=== PATIENT | female | born 1950 | race Caucasian/White ===

== ENCOUNTER → 2021-04-02 11:19 | Outpatient (CLI) | payer MEDICARE, SELFPAY ==
--- NOTE | 2021-04-02 11:21 | DI.MG.S_ITS ---
BILATERAL DIGITAL SCREENING MAMMOGRAM 3D/2D WITH CAD: 04/02/2021 CLINICAL: Routine screening. Family history of breast cancer. Comparison is made to exams dated: 08/29/2015 mammogram and 08/10/2013 mammogram - outside location. The tissue of both breasts is predominantly fatty. Current study was also evaluated with a Computer Aided Detection (CAD) system. No significant masses, calcifications, or other findings are seen in either breast. There has been no significant interval change. IMPRESSION: NEGATIVE There is no mammographic evidence of malignancy. A 1 year screening mammogram is recommended. This exam was interpreted at Station ID: [id number]. NOTE: For mammograms, a report in lay terms will be sent to the patient. Approximately 15% of breast malignancies will not be visualized mammographically. In the management of a palpable breast mass, a negative mammogram must not discourage biopsy of a clinically suspicious lesion. Electronically Signed By: Garcia Lopez M.D., jr/prema:04/02/2021 11:59:56 letter sent: Normal Exam ACR BI-RADS Category 1: Negative 3341F
== END ==
PROVIDERS: Family Provider Specialist; PCP Family Medicine; Referring Provider Family Medicine; Visit Provider Family Medicine
DX: Z12.31 Encounter for screening mammogram for malignant neoplasm of breast (principal); Z80.3 Family history of malignant neoplasm of breast
CPT/HCPCS: 77063; 77067

== ENCOUNTER → 2021-08-16 11:34 | Outpatient (CLI) | payer MEDICARE, SELFPAY ==
--- NOTE | 2021-08-16 11:37 | DI.RAD.S_ITS ---
PROCEDURE: XR KNEE RT 3V INDICATIONS: right knee pain - suspect OA TECHNIQUE: 3 views of the knee were acquired. COMPARISON: [facility], , KNEE 3V RIGHT, 09/23/2016, 10:29. FINDINGS: Bones: No fractures or dislocations. Moderate to advanced joint space loss of the medial compartment with periarticular osteophytosis. The lateral and patellofemoral compartment joint spaces are maintained. Mild to moderate lateral and patellofemoral compartment osteophytosis. Soft tissues: No substantial joint effusion. No suspicious soft tissue calcifications. IMPRESSION: Knee degeneration as detailed above. Dictated by: Mauricio Martines M.D. on 08/16/2021 at 13:28 Approved by: Mauricio Martines M.D. on 08/16/2021 at 13:32
== END ==
PROVIDERS: Family Provider Specialist; PCP Family Medicine; Referring Provider Physician Assistant; Visit Provider Physician Assistant
DX: M25.561 Pain in right knee (principal)
CPT/HCPCS: 73562

== ENCOUNTER → 2021-10-11 11:10 | Outpatient (CLI) | payer MEDICARE, SELFPAY ==
--- NOTE | 2021-10-11 11:12 | DI.US.S_ITS ---
PROCEDURE: US EXTREMELY NONVASC UPPER RT INDICATIONS: MASS RIGHT UPPER THIGH TECHNIQUE: Real-time scanning was performed of the right thigh, with image documentation. COMPARISON: None. FINDINGS: Focused ultrasound examination of medial right upper thigh shows isoechoic nonencapsulated structure in subcutaneous soft tissue measures 4.5 x 4.7 x 2.3 cm in size. No internal vascularity is seen. IMPRESSION: Finding most likely represent unencapsulated lipoma in medial right upper thigh soft tissue. Clinical correlation and follow-up is recommended. Dictated by: Dm Hernandez M.D. on 10/11/2021 at 16:47 Approved by: Dm Hernandez M.D. on 10/11/2021 at 16:47
== END ==
PROVIDERS: Family Provider Specialist; PCP Family Medicine; Referring Provider Physician Assistant; Visit Provider Physician Assistant
DX: R22.41 Localized swelling, mass and lump, right lower limb (principal)
CPT/HCPCS: 76882

== ENCOUNTER → 2022-03-27 10:30 | Outpatient (CLI) | payer MEDICARE, SELFPAY | PROVIDERS: Family Provider Specialist; PCP Family Medicine; Visit Provider Physician Assistant | DX: N95.2 Postmenopausal atrophic vaginitis (principal) | CPT/HCPCS: 87070; 87075; 87077; 87186; 87205 ==

== ENCOUNTER → 2022-05-09 12:46 | Outpatient (CLI) | payer MEDICARE, SELFPAY ==
--- NOTE | 2022-05-09 | DI.MG.S_ITS ---
BILATERAL DIGITAL SCREENING MAMMOGRAM 3D/2D WITH CAD: 05/09/2022 CLINICAL: Routine screening. Family history of breast cancer. Comparison is made to exams dated: 04/02/2021 mammogram - [facility], 08/29/2015 mammogram, and 08/10/2013 mammogram - outside location. Both breasts are heterogeneously dense, which may obscure small masses (category c / 51-75% glandular tissue). Current study was also evaluated with a Computer Aided Detection (CAD) system. No significant masses, calcifications, or other findings are seen in either breast. There has been no significant interval change. IMPRESSION: NEGATIVE There is no mammographic evidence of malignancy. A 1 year screening mammogram is recommended. Based on the Tyrer Cuzick model (a risk assessment model) the patient's lifetime risk is 14.7% and her 10 year risk is 8.8%. According to the ACR, ACS, and NCCN guidelines, an annual breast MRI exam along with mammogram is recommended if the patient's lifetime risk is 20% or greater. This exam was interpreted at Station ID: [id number]. NOTE: For mammograms, a report in lay terms will be sent to the patient. Approximately 15% of breast malignancies will not be visualized mammographically. In the management of a palpable breast mass, a negative mammogram must not discourage biopsy of a clinically suspicious lesion. Electronically Signed By: Garcia Lopez M.D., jr/prema:05/09/2022 13:07:02 letter sent: Normal Exam ACR BI-RADS Category 1: Negative 3341F
== END ==
PROVIDERS: Family Provider Specialist; PCP Family Medicine; Referring Provider Family Medicine; Visit Provider Family Medicine
DX: Z12.31 Encounter for screening mammogram for malignant neoplasm of breast (principal); Z80.3 Family history of malignant neoplasm of breast
CPT/HCPCS: 77063; 77067

== ENCOUNTER → 2022-12-30 10:20 | Outpatient (CLI) | payer MEDICARE, SELFPAY ==
[2022-12-30 11:11] LABS: Hemoglobin A1C% w Est Avg Glu 6.3 % (4.0-6.0)
[2022-12-30 11:45] LABS: Microalbumin Urine Random 11.1 mg/dL (0-1.6)
== END ==
PROVIDERS: Family Provider Specialist; PCP Family Medicine; Referring Provider Physician Assistant; Visit Provider Physician Assistant
DX: E11.9 Type 2 diabetes mellitus without complications (principal); Z12.11 Encounter for screening for malignant neoplasm of colon; E11.65 Type 2 diabetes mellitus with hyperglycemia
CPT/HCPCS: 36415; 82043; 82570; 83036

== ENCOUNTER → 2023-01-09 10:53 | Outpatient (CLI) | payer MEDICARE, SELFPAY ==
[2023-01-10 14:58] LABS: Fecal Immunochemical Test Negative (Negative)
== END ==
PROVIDERS: Family Provider Specialist; PCP Family Medicine; Referring Provider Physician Assistant; Visit Provider Physician Assistant
DX: Z12.11 Encounter for screening for malignant neoplasm of colon (principal)
CPT/HCPCS: 82274

== ENCOUNTER → 2023-05-20 07:56 | Outpatient (CLI) | payer MEDICARE, SELFPAY ==
--- NOTE | 2023-05-20 07:59 | DI.MG.S_ITS ---
BILATERAL DIGITAL SCREENING MAMMOGRAM 3D/2D WITH CAD: 05/20/2023 CLINICAL: Routine screening. Family history of breast cancer. Comparison is made to exams dated: 05/09/2022 mammogram, 04/02/2021 mammogram - [facility], and 08/29/2015 mammogram - outside location. Both breasts are heterogeneously dense, which may obscure small masses (category c / 51-75% glandular tissue). Current study was also evaluated with a Computer Aided Detection (CAD) system. There are benign calcifications in both breasts. No significant masses, calcifications, or other findings are seen in either breast. There has been no significant interval change. IMPRESSION: BENIGN There is no mammographic evidence of malignancy. A 1 year screening mammogram is recommended. Based on the Tyrer Cuzick model (a risk assessment model) the patient's lifetime risk is 13.9% and her 10 year risk is 8.9%. According to the ACR, ACS, and NCCN guidelines, an annual breast MRI exam along with mammogram is recommended if the patient's lifetime risk is 20% or greater. This exam was interpreted at Station ID: [id number]. NOTE: For mammograms, a report in lay terms will be sent to the patient. Approximately 15% of breast malignancies will not be visualized mammographically. In the management of a palpable breast mass, a negative mammogram must not discourage biopsy of a clinically suspicious lesion. Electronically Signed By: Tushar walker/prema:05/20/2023 14:34:58 letter sent: Normal Exam ACR BI-RADS Category 2: Benign Finding(s) 3342F
[2023-05-20 08:55] LABS: Add Manual Diff / Slide Review NO; Basophils Absolute Auto 100 /uL (0-100); Basophils Percent Auto 0.8 % (0-2); Eosinophils Absolute Auto 200 /uL (0-450); Eosinophils Percent Auto 1.6 % (2-4); Hemoglobin 14.8 g/dL (12.0-16.0); Lymphocytes Absolute Auto 2800 /uL (1100-4500); Lymphocytes Percent Auto 27.8 % (25-40); Mean Corpuscular HGB Conc 34.5 % (30-36); Mean Corpuscular Hemoglobin 29.2 PG (26-34); Mean Corpuscular Volume 84.7 fL (80-100); Monocytes Absolute Auto 600 /uL (0-900); Monocytes Percent Auto 5.6 % (3-14); Neutrophils Absolute Auto 6500 /uL (1500-7000); Neutrophils Percent Auto 64.2 % (50-75); Platelet Count 442 X10^3/uL (150-400); Red Blood Cell Count 5.08 X10^6/uL (4.0-5.2); Red Cell Distribution Width 12.8 % (11.6-14.8); White Blood Cell Count 10.1 X10^3/uL (4.5-11.0)
[2023-05-20 09:22] LABS: Alanine Aminotransferase 19 IU/L (<35); Albumin 4.5 g/dL (3.5-5.0); Albumin Globulin Ratio 1.3 (1.0-2.8); Alkaline Phosphatase 49 U/L (38-126); Aspartate Aminotransferase 20 IU/L (14-36); BUN Creatinine Ratio 27.8 (6-22); Bilirubin Total 0.6 mg/dL (0.2-1.3); Blood Urea Nitrogen 20 mg/dL (7-17); Carbon Dioxide 29 mmol/L (22-32); Chloride 97 mmol/L (98-107); Cholesterol 186 mg/dL (140-199); Estimated Glomerular Filt Rate > 60 mL/min (>60); Globulin 3.5 g/dL (1.7-4.1); Glucose 130 mg/dL (80-110); HDL Cholesterol 49 mg/dL (40-60); HEMOLYSIS < 15 (0-50); LDL Cholesterol Calculated 114 mg/dL (<100); Potassium 4.2 mmol/L (3.4-5.1); Sodium 137 mmol/L (137-145); Triglycerides 117 mg/dL (35-150)
== END ==
LOC: MAMMO 07:57
PROVIDERS: PCP Family Medicine; Referring Provider Family Medicine; Visit Provider Family Medicine
DX: Z12.31 Encounter for screening mammogram for malignant neoplasm of breast (principal); Z80.3 Family history of malignant neoplasm of breast; R92.333 Mammographic heterogeneous density, bilateral breasts; E78.2 Mixed hyperlipidemia; E11.65 Type 2 diabetes mellitus with hyperglycemia; I10 Essential (primary) hypertension
CPT/HCPCS: 36415; 77063; 77067; 80053; 80061; 85025

== ENCOUNTER 2023-07-17 10:00 | Day surgery (SDC) | payer MEDICARE, SELFPAY ==
--- NOTE | 2023-07-17 | PATH_ITS ---
[facility] Accession Number: [id number] No. of containers..02 Tissue . 01 Material submitted: . PART A: cecum - CECAL POLYP PART B: colon - ASCENDING POLYP . 01 Diagnosis: Part A: CECAL POLYP: Sessile serrated adenoma. . Part B: ASCENDING POLYP: Tubular adenoma. [facility] 07/22/20231640 Local . 01 Electronically signed: . Wilfrid Cee MD, Pathologist NPI- [id number] . 01 Gross description: . A. Received in formalin labeled with the patient's name, , and cecal polyp, and consists of two vega soft tissue fragments ranging from 0.4 to 0.6 cm in greatest dimension. Submitted entirely in cassette A1. B. Received in formalin labeled with the patient's name, , and ascending colon polyp, and consists of a single vega soft tissue fragment measuring 0.3 cm in greatest dimension. Submitted entirely in cassette B1. ([id number]) /[facility] 07/22/20231640 Local . 01 Pathologist provided ICD-10: D12.0, D12.2 . 01 CPT . 383868, 015824 Specimen Comment: A courtesy copy of this report has been sent to [phone] Performed at: 01 [facility] [address] [place] [address], [place], [place] [id number] MD Wilfrid Cee MD Phone: [phone]
[2023-07-17 11:21] VITALS: BP 189/90; PULSE 86; RESP 16; TEMP 36.4; O2SAT 98
[2023-07-17] MEDS: LACTATED RINGERS 1,000 ML 42 ML IV (11:38)
--- NOTE | 2023-07-17 11:43 | PM.HP.1 ---
History of Present Illness History of Present Illness Date Patient Seen: 07/17/23 Time Patient Seen: 11:43 Chief complaint: Colonoscopy Narrative: Graciela Johnston is a 72-year-old woman who is here for colonoscopy. Her last colonoscopy was in 2017. She does not remember if she would polyps removed. She has an uncle who had colon cancer. No first-degree relatives with colon cancer. [facility] Medical History (Updated 07/17/23 @ 11:44 by Jose Carlos Otoole MD) Controlled type 2 diabetes mellitus without complication, without long-term current use of insulin (11/04/16) Renal artery stenosis (09/22/14) Surgical History History of angioplasty Status post breast biopsy Status post hysterectomy Family History Father Cancer Grandfather Stomach cancer Grandmother Heart disease Mother Heart disease Grandmother Diabetes mellitus Hypertension Sister Age: 63 Breast cancer Social History marital status: Smoking Status: Never smoker alcohol intake: current substance use type: does not use Meds Home Medications and Allergies Home Medications Medication Instructions Recorded Confirmed Type cholecalciferol (vitamin D3) 50 2,000 unit PO QDAY ##0 12/25/15 07/17/23 History mcg (2,000 unit) capsule (Vitamin D3) diclofenac sodium 1 % topical gel 2 gram topical QID PRN pain #100 10/08/18 07/17/23 Rx (Voltaren) grams zolpidem 5 mg tablet 5 mg PO HSP PRN insomnia #15 tabs 02/22/21 07/17/23 Rx Disabled Parking Permit #1 ea 12/04/21 04/18/22 Rx estradiol 0.01% (0.1 mg/gram) 0.25 appful vaginal BEDTIME PRN 04/01/22 07/17/23 Rx vaginal cream vaginal dryness #42.5 grams sumatriptan succinate 50 mg tablet See Rx Instructions .Route 08/09/22 07/17/23 Rx .COMPLEX #10 tabs diltiazem HCl 240 mg 240 mg PO DAILY #90 caps 03/10/23 07/17/23 Rx capsule,extended release 24 hr irbesartan 300 mg tablet 300 mg PO DAILY #90 tabs 03/10/23 07/17/23 Rx metformin 1,000 mg tablet See Rx Instructions .Route 03/10/23 07/17/23 Rx .COMPLEX #180 tabs lorazepam 0.5 mg tablet 0.5 mg PO BEDTIME PRN sleep #20 03/14/23 07/17/23 Rx tabs semaglutide 2 mg/dose (8 mg/3 mL) 2 mg (0.75 mL) SUBCUT QWEEK #3 mL 04/07/23 07/17/23 Rx subcutaneous pen injector Allergies Allergy/AdvReac Type Severity Reaction Status Date / Time penicillin G [PENICILLIN G] Allergy Mild hives Verified 07/17/23 11:18 Exam Vital Signs (past 8 hours): - 07/17/23 11:21 Temperature 97.6 F Pulse Rate 86 Respiratory Rate 16 Blood Pressure 189/90 H Pulse Oximetry 98 Oxygen Delivery Method Room Air Oxygen Delivery Method Room Air Resp Effort & Inspection: normal respiratory effort Assessment & Plan Assessment and plan (1) Colon cancer screening: Status: Acute Plan We reviewed the risks and benefits of colonoscopy for colon cancer screening and she would like to proceed.
--- NOTE | 2023-07-17 12:51 | PM.OP.COLON ---
Operative Date/Time/Diagnoses Date of procedure: 07/17/23 Time of procedure: 12:51 Pre-op diagnosis: Colon cancer screening Post-op diagnosis: same Procedure & Clinicians Study performed: Colonoscopy Same procedure as scheduled: Yes Surgeon: Jose Carlos Otoole Procedure Notes Procedure in detail: Surgeon: Jose Carlos Otoole MD Anesthesia: Yesi Back D.O. Procedure: The patient was brought to the endoscopy suite, placed in left lateral decubitus position. The patient was connected to monitoring devices. A time-out was performed. Sedation was administered. Once the patient was adequately sedated, a digital rectal exam was performed and was normal. The scope was then inserted and advanced to the cecum where the appendiceal orifice was identified and photographed. The scope was then slowly withdrawn over greater than 6 minutes. The mucosa was thoroughly inspected. There was a 5 mm polyp in the cecum removed with a cold snare. There was a 5 mm polyp in the ascending colon removed with a cold snare. There was scattered diverticulosis throughout the colon. The scope was retroflexed in the rectum. Internal hemorrhoids were noted. The scope was straightened and removed. The patient was awakened and brought to recovery. Scope withdrawal time: 14 minutes Sedation time: 19 minutes EBL: 2 mL Findings: Small cecal polyp, small ascending polyp and scattered diverticulosis Post-procedure Disposition: PACU
[2023-07-17 12:54] VITALS: BP 116/58; PULSE 94; RESP 12; TEMP 36.6; O2SAT 96
[2023-07-17 13:00] VITALS: BP 130/76; PULSE 93; RESP 12; O2SAT 98
[2023-07-17 13:06] VITALS: BP 147/78; PULSE 88; RESP 16; O2SAT 98
[2023-07-17 13:11] VITALS: BP 158/84; PULSE 86; RESP 15; O2SAT 99
[2023-07-17 13:15] VITALS: BP 153/84; PULSE 77; RESP 13; TEMP 36.5; O2SAT 98
== END 2023-07-17 13:30 | disposition home or self-care (01) ==
PROVIDERS: PCP Family Medicine; Referring Provider Surgery; Visit Provider Surgery
PROC: 0DJD8ZZ Inspection of Lower Intestinal Tract, Via Natural or Artificial Opening Endoscopic (ICD-10-PCS; CPT 45378; principal; 2023-07-17 11:15)
DX: Z12.11 Encounter for screening for malignant neoplasm of colon (principal); K57.30 Diverticulosis of large intestine without perforation or abscess without bleeding; D12.0 Benign neoplasm of cecum; D12.2 Benign neoplasm of ascending colon
CPT/HCPCS: 45385; J0330; J2405; J2704

== ENCOUNTER → 2023-08-14 11:10 | Outpatient (CLI) | payer MEDICARE, SELFPAY ==
--- NOTE | 2023-08-14 11:13 | DI.RAD.S_ITS ---
Bone Density Report Name: ARUNA WILKERSON Age: 73 Sex: Female Ethnicity: White Date of : 1950 Indication: postmenopausal; screening for osteoporosis; Referring Provider: MICHAEL MANZO Study: Bone densitometry was performed. Exam Date: August 14, 2023 Accession number: [id number] Bone Density: Region BMD T-score Z-score Classification AP Spine(L1-L4) 0.948 -0.9 1.3 Normal Femoral Neck (Left) 0.914 0.6 2.4 Normal Total Hip (Left) 1.028 0.7 2.3 Normal Femoral Neck (Right) 0.879 0.3 2.1 Normal Total Hip (Right) 1.017 0.6 2.2 Normal Total Hip Mean 1.023 0.7 2.3 Normal World Health Organization criteria for BMD impression classify patients as: Normal (T-score at or above -1.0), Osteopenia (T-score between -1.0 and -2.5), or Osteoporosis (T-score at or below -2.5). 10-year Fracture Risk: FRAX not reported because: All T-scores for Spine Total, Hip Total, Femoral Neck at or above -1.0 Impression: The patient has normal bone mass. Discussion: BONE DENSITY IS ABOVE THE MINIMUM DESIRABLE LEVEL AT ALL SKELETAL SITES TESTED. This patient's bone mineral density is above the minimum desirable level (T-score -1.0 or better) at all sites measured. The patient should follow a healthful lifestyle (good nutrition with adequate calcium and vitamin D, and appropriate weight-bearing exercise). Follow-Up: Consider repeating this study in 5 years or sooner if there is some new clinical indication. Reported by: FRANK BAPTISTE M.D. on 08/14/2023 12:13:00 PM.
== END ==
PROVIDERS: PCP Family Medicine; Referring Provider Family Medicine; Visit Provider Family Medicine
DX: M85.80 Other specified disorders of bone density and structure, unspecified site; Z78.0 Asymptomatic menopausal state
CPT/HCPCS: 77080

== ENCOUNTER → 2023-10-29 09:39 | Outpatient (CLI) | payer MEDICARE, SELFPAY ==
[2023-10-29 10:49] LABS: Hemoglobin A1C% w Est Avg Glu 5.9 % (4.0-6.0)
[2023-10-29 10:54] LABS: Blood Urea Nitrogen 21 mg/dL (7-17); Calcium 10.1 mg/dL (8.4-10.2); Carbon Dioxide 26 mmol/L (22-32); Chloride 103 mmol/L (98-107); Estimated Glomerular Filt Rate > 60 mL/min (>60); Glucose 103 mg/dL (80-110); HEMOLYSIS < 15 (0-50); Potassium 4.4 mmol/L (3.4-5.1); Sodium 136 mmol/L (137-145)
== END ==
PROVIDERS: PCP Family Medicine; Referring Provider Family Medicine; Visit Provider Family Medicine
DX: E11.9 Type 2 diabetes mellitus without complications (principal); E11.65 Type 2 diabetes mellitus with hyperglycemia; I70.1 Atherosclerosis of renal artery
CPT/HCPCS: 36415; 80048; 83036

== ENCOUNTER → 2023-12-16 | Outpatient (CLI) | payer MEDICARE, SELFPAY ==
--- NOTE | 2023-12-16 | DI.MRI.S_ITS ---
PROCEDURE: MR ABDOMEN RENAL PROTOCOL INDICATIONS: ATHEROSCLEROSIS OF RENAL ARTERY TECHNIQUE: Coronal HASTE through abdomen and pelvis; axial 2D FLASH in- and [id number] (with and without fat saturation), and breath-hold T2 FSE from the hepatic dome to the bottom of the kidneys. Coronal HASTE MR urogram of kidneys and bladder. Dynamic coronal VIBE during IV gadolinium administration; postgadolinium axial VIBE or 2D FLASH with fat saturation from the hepatic dome through the kidneys. COMPARISON: None. FINDINGS: Image quality: Diagnostic. Kidneys and Ureters: No hydronephrosis. No solid mass. Bilateral T2 hyperintense simple cysts. No complex renal cystic lesion which requires follow up. OTHER: Lung bases: Unremarkable. Liver: No solid mass. T2 hyperintense lesion in segment 4 of the liver (17/26, 18/9) with no enhancement or restricted diffusion suggestive of a simple cyst. Gallbladder: Cholelithiasis without acute cholecystitis. Biliary ducts: No biliary dilation. Pancreas: No ductal dilation. Spleen: Size is within normal limits. Adrenal Glands: No adrenal nodules. Stomach and Bowel: Normal colonic caliber, without significant wall thickening. Colonic diverticulosis, without diverticulitis. Above average colonic stool burden. Peritoneum: No abnormal intraperitoneal fluid. No free air. Ventral Wall: No hernia. Abdominal Nodes: No retroperitoneal or mesenteric adenopathy by size criteria. Vessels: Aorta and inferior vena cava are normal in size. Single bilateral renal arteries. Bilateral renal arteries are patent with mild multifocal stenoses. Main portal vein is patent. Bones: No abnormal signal in the visualized marrow. IMPRESSION: 1. No MRA evidence of a hemodynamically significant renal artery stenosis. Bilateral renal arteries are patent with mild multifocal stenoses. 2. Colonic diverticulosis without diverticulitis. Above average colonic stool burden which may correlate with constipation. 3. Cholelithiasis without acute cholecystitis. 4. Hepatic and renal simple cysts. Dictated by: Raina Wen M.D. on 12/16/2023 at 15:24 Approved by: Raina Wen M.D. on 12/16/2023 at 16:19
--- NOTE | 2023-12-16 12:01 | DI.CT.S_ITS ---
PROCEDURE: CT CHEST WO CON INDICATIONS: pulmonary nodule TECHNIQUE: Noncontrast 5 mm thick sections acquired from the pulmonary apices to the posterior costophrenic angles. 1 mm lung window, 5 mm thick coronal and sagittal and 7 mm axial MIP reformats were then acquired. For radiation dose reduction, the following was used: automated exposure control, adjustment of mA and/or kV according to patient size. COMPARISON: None available. FINDINGS: Image quality: Diagnostic. Lower Neck: No enlarged lymph nodes. Thyroid: No thyroid nodules which require sonographic follow up, per consensus guidelines. Axillae: No enlarged lymph nodes. Chest Wall: Unremarkable. Bones: Unremarkable. Lungs and Pleura: No pneumothorax or pleural effusions. Dependent ground-glass opacity which has the appearance of atelectasis. No consolidation. The central airways are clear. Right middle lobe anterior subpleural 0.5 cm, (3/206). A few calcified granuloma. Heart: Heart size is normal. No pericardial effusion. Thoracic Vessels: The aorta and pulmonary arteries demonstrate normal size. Mediastinum and Rosalie: No enlarged lymph nodes. Esophagus: No wall thickening. No hiatal hernia. Upper Abdomen: Visualized upper abdomen solid organs and bowel loops appear normal. IMPRESSION: Right middle lobe pulmonary nodule measuring 0.5 cm. Low suspicion. -Recommend comparison with prior imaging when available. No adenopathy seen. Preliminary findings discussed with Dr. Garcia Saul. Dictated by: Jackson Berry M.D. on 12/29/2023 at 14:17 Approved by: Jackson Berry M.D. on 12/29/2023 at 14:24
== END ==
PROVIDERS: PCP Family Medicine; Referring Provider Family Medicine; Visit Provider Family Medicine
DX: R91.1 Solitary pulmonary nodule (principal); I70.1 Atherosclerosis of renal artery; K76.89 Other specified diseases of liver; N28.1 Cyst of kidney, acquired; K80.20 Calculus of gallbladder without cholecystitis without obstruction; K57.90 Diverticulosis of intestine, part unspecified, without perforation or abscess without bleeding
CPT/HCPCS: 71250; 74183; A9579

== ENCOUNTER → 2024-07-08 10:06 | Outpatient (CLI) | payer MEDICARE, SELFPAY ==
[2024-07-08 11:14] LABS: Hemoglobin A1C% w Est Avg Glu 5.5 % (4.0-6.0)
== END ==
PROVIDERS: PCP Family Medicine; Referring Provider Family Medicine; Visit Provider Family Medicine
DX: E11.65 Type 2 diabetes mellitus with hyperglycemia (principal)
CPT/HCPCS: 36415; 83036

== ENCOUNTER → 2024-08-02 10:58 | Outpatient (CLI) | payer MEDICARE, SELFPAY ==
--- NOTE | 2024-08-02 10:59 | DI.MG.S_ITS ---
MM screening mammo BI: 08/02/2024. BI-RADS: 2 CLINICAL: 74-year old female for bilateral screening mammogram. Tyrer-Cuzick lifetime risk of 8.5%. Current reported family history of breast cancer: sister. The patient had prior bilateral breast biopsies. PRIOR EXAMS 05/20/2023, 05/09/2022, 04/02/2021. MAMMOGRAPHY TECHNIQUE: 2D and 3D (tomosynthesis) digital mammographic views obtained, with additional images as needed for full coverage. Current study was also evaluated with a Computer Aided Detection (CAD) system. DENSITY C. The breasts are heterogeneously dense, which may obscure small masses. MAMMOGRAPHY FINDINGS Right: Benign-appearing calcification noted on the right. There are no suspicious masses, calcifications, or other findings in the breast. Left: Biopsy marker present on the left. Benign-appearing calcification noted on the left. There are no suspicious masses, calcifications, or other findings in the breast. IMPRESSION: * No evidence of malignancy with benign findings. RECOMMENDATIONS Bilateral * Annual screening mammography. OVERALL ASSESSMENT CATEGORY BI-RADS-2: Benign. The [employer] recommends annual screening mammography beginning at age 40 for women with average risk of breast cancer. ELECTRONICALLY SIGNED: Yue Monroy M.D. on 08/02/2024 at 04:23:27 PM PT Interpreting Station ID: [id number]
== END ==
PROVIDERS: PCP Family Medicine; Referring Provider Family Medicine; Visit Provider Family Medicine
DX: Z12.31 Encounter for screening mammogram for malignant neoplasm of breast (principal); Z80.3 Family history of malignant neoplasm of breast; R92.333 Mammographic heterogeneous density, bilateral breasts
CPT/HCPCS: 77063; 77067

== ENCOUNTER → 2025-01-15 10:00 | Outpatient (CLI) | payer MEDICARE, SELFPAY ==
[2025-01-15 10:40] LABS: Add Manual Diff / Slide Review NO; Hematocrit 40.4 % (36-46); Hemoglobin 14.2 g/dL (12.0-16.0); Lymphocytes Absolute Auto 1900 /uL (1100-4500); Mean Corpuscular HGB Conc 35.1 % (30-36); Mean Corpuscular Hemoglobin 29.7 PG (26-34); Mean Corpuscular Volume 84.6 fL (80-100); Platelet Count 390 X10^3/uL (150-400)
[2025-01-15 10:50] LABS: Hemoglobin A1C% w Est Avg Glu 5.8 % (4.0-6.0)
[2025-01-15 11:07] LABS: Alanine Aminotransferase 16 IU/L (<35); Albumin 4.4 g/dL (3.5-5.0); Albumin Globulin Ratio 1.5 (1.0-2.8); Alkaline Phosphatase 48 U/L (38-126); Blood Urea Nitrogen 21 mg/dL (7-17); Calcium 10.5 mg/dL (8.4-10.2); Carbon Dioxide 26 mmol/L (22-32); Chloride 101 mmol/L (98-107); Cholesterol 170 mg/dL (140-199); Estimated Glomerular Filt Rate > 60 mL/min (>60); Globulin 2.9 g/dL (1.7-4.1); Glucose 112 mg/dL (70-99); HDL Cholesterol 55 mg/dL (40-60); HEMOLYSIS < 15 (0-50); Potassium 4.4 mmol/L (3.4-5.1); Sodium 137 mmol/L (137-145); Total Protein 7.3 g/dL (6.3-8.2); Triglycerides 116 mg/dL (35-150)
== END ==
PROVIDERS: PCP Family Medicine; Referring Provider Family Medicine; Visit Provider Family Medicine
DX: I10 Essential (primary) hypertension (principal); E11.9 Type 2 diabetes mellitus without complications; E78.2 Mixed hyperlipidemia
CPT/HCPCS: 36415; 80053; 80061; 83036; 85025

== ENCOUNTER → 2025-02-01 12:00 | Outpatient (CLI) | payer MEDICARE, SELFPAY ==
--- NOTE | 2025-02-01 12:01 | DI.US.S_ITS ---
PROCEDURE: US CAROTID DOPPLER BI INDICATIONS: renal artery stenosis, fibromuscular dysplasia TECHNIQUE: Color and pulse Doppler interrogation was performed of both carotid systems, with image documentation and velocity measurements. COMPARISON: None. FINDINGS: Stenosis calculations are based on SRU (Society of Radiologists in Ultras[employer]) criteria. The flow velocities and the arterial waveforms are normal within both carotid arterial systems. No significant atherosclerotic plaque is seen. The estimated degree of internal carotid artery stenosis is less than 50%. Antegrade flow is confirmed within both vertebral arteries. IMPRESSION: No hemodynamically significant stenosis is seen. Dictated by: Russ Lizarraga M.D. on 02/01/2025 at 12:30 Approved by: Russ Lizarraga M.D. on 02/01/2025 at 12:30
== END ==
PROVIDERS: PCP Family Medicine; Referring Provider Family Medicine; Visit Provider Family Medicine
DX: I77.3 Arterial fibromuscular dysplasia (principal)
CPT/HCPCS: 93880